=== PATIENT | male | born 1950 | race Caucasian/White ===

== ENCOUNTER → 2021-11-14 09:23 | Outpatient (BNVA) | payer OTHER, SELFPAY | PROVIDERS: Family Provider Emergency Medicine Emergency Medical Services; PCP Emergency Medicine Emergency Medical Services; Visit Provider Nurse Practitioner Family | DX: I10 Essential (primary) hypertension (principal); I25.10 Atherosclerotic heart disease of native coronary artery without angina pectoris; R00.1 Bradycardia, unspecified; Z87.891 Personal history of nicotine dependence | CPT/HCPCS: 93005; 99214 ==

== ENCOUNTER → 2022-05-14 10:44 | Outpatient (BNVA) | payer OTHER, SELFPAY | PROVIDERS: Family Provider Emergency Medicine Emergency Medical Services; PCP Emergency Medicine Emergency Medical Services; Visit Provider Internal Medicine Cardiovascular Disease | DX: R53.83 Other fatigue (principal); I25.118 Atherosclerotic heart disease of native coronary artery with other forms of angina pectoris; I10 Essential (primary) hypertension; E78.2 Mixed hyperlipidemia; Z87.891 Personal history of nicotine dependence | CPT/HCPCS: 99214; Q3014 ==

== ENCOUNTER 2022-05-24 10:43 | Outpatient (CLI) | payer OTHER, SELFPAY ==
--- NOTE | 2022-05-24 11:00 | USCV_ITS ---
Jesu Gonzalez Age: 71 Gender: M : 1950 Exam Date: 05/24/2022 10:53 Ordering Phys: Stephanie Ortega MD ([email or web address]) Technologist: CT [place] [facility] [place]: Hx of cad BP: 146 / 60 HR: 59 Rhythm: Sinus Technical Quality: Adequate MEASUREMENTS (Male / Female) Normal Values 2D ECHO LV Diastolic Diameter PLAX 4.3 cm 4.2 - 5.9 / 3.9 - 5.3 cm LV Systolic Diameter PLAX 3.2 cm IVS Diastolic Thickness 1.2 cm 0.6 - 1.0 / 0.6 - 0.9 cm IVS Systolic Thickness 1.6 cm LVPW Diastolic Thickness 1.2 cm 0.6 - 1.0 / 0.6 - 0.9 cm LVPW Systolic Thickness 1.5 cm LVOT Diameter 2.2 cm LV Ejection Fraction 2D Teich 51.2 % LV Ejection Fraction MOD 2C 73.6 % LV Ejection Fraction 2C AL 72.1 % LA Diameter 4.0 cm IVC Diameter 1.3 cm M-MODE Aortic Annulus Diameter 3.5 cm LA Ao Ratio MM 1.2 MV E Point Septal Separation 0.8 cm DOPPLER AV Peak Velocity 120.0 cm/s LVOT Peak Velocity 95.0 cm/s AV Area Cont Eq vti 3.3 cm squared AV Area Cont Eq pk 2.9 cm squared MV Area PHT 5.0 cm squared Mitral E to A Ratio 0.9 MV E' Velocity 90.0 cm/s TR Peak Velocity 176.7 cm/s TR Peak Gradient 12.5 mmHg TV Peak E Velocity 88.0 cm/s Right Atrial Pressure 3.0 mmHg Pulmonary Artery Systolic Pressu 15.5 mmHg RV Acceleration Time 0.1 s FINDINGS Left Ventricle Normal left ventricular size, systolic function with no regional wall motion abnormalities. Left ventricular ejection fraction is estimated at 55-60 %. Abnormal septal motion consistent with conduction abnormality. Right Ventricle Normal right ventricular size and systolic function. RVSP could not be calculated due to incomplete tricuspid regurgitation velocity profile. Right Atrium Normal right atrial size. Left Atrium Normal left atrial size. Mitral Valve Mildly thickened mitral valve. No mitral valve stenosis. No mitral valve regurgitation. Aortic Valve Aortic valve not well visualized. No aortic valve stenosis. No aortic valve regurgitation. Tricuspid Valve Structurally normal tricuspid valve. Pulmonic Valve Pulmonic valve not well visualized. Pericardium No pericardial effusion. Aorta Normal sized aortic root. IVC Inferior vena cava not visualized. CONCLUSIONS 1. Normal left ventricular size, systolic function with no regional wall motion abnormalities. Left ventricular ejection fraction is estimated at 55-60 %. 2. No prior similar studies to compare. Stephanie Ortega MD (Electronically Signed) Final Date: 01 June 2022 20:34 S
[2022-05-24] MEDS: perflutren protein-a microsphr 0.22 mg/mL SDV 3 mL IV (11:32)
== END 2022-05-24 10:44 | disposition home or self-care (01) ==
LOC: RAD 10:43
PROVIDERS: PCP Emergency Medicine Emergency Medical Services; Visit Provider Internal Medicine Cardiovascular Disease
DX: R06.02 Shortness of breath (principal); I25.10 Atherosclerotic heart disease of native coronary artery without angina pectoris
CPT/HCPCS: C8929; Q9956

== ENCOUNTER 2022-08-13 09:45 | Emergency (ER) | payer OTHER, SELFPAY ==
[2022-08-13 09:52] VITALS: BP 159/72; PULSE 71; RESP 16; TEMP 36.6; O2SAT 94; BMI 27.0
--- NOTE | 2022-08-13 10:01 | ECG_ITS ---
[facility] Test Date: 2022-08-13 Pat Name: Jesu Gonzalez Department: Room: Gender: Male Count Room Clerk: : 1950 Requested By: Madhav Vo Order Number: [id number] Hemanth MD: Angel Blevins M.D. Measurements Intervals [place] Rate: 63 P: 162 OK: 197 QRS: 198 QRSD: 91 T: 171 QT: 386 QTc: 396 Interpretive Statements SINUS RHYTHM LATERAL MYOCARDIAL INFARCTION , OF INDETERMINATE AGE [40+ ms Q WAVE AND/OR ST/T ABNORMALITY IN I/aVL/V5/V6] Compared to ECG 06/12/2018 14:04:01 Myocardial infarct finding now present Sinus bradycardia no longer present First degree AV block no longer present Electronically Signed On 08-13-2022 14:48:58 CDT by Angel Blevins M.D. [id number]
--- NOTE | 2022-08-13 12:25 | XR_ITS ---
WS: [id number] Portable AP upright chest, 08/13/2022 Clinical Data: dyspnea/cough Comparison: None. Findings: No nodules, masses or effusions are seen. The heart is normal. The pulmonary vascularity is not increased. No pneumonia or pneumothorax is seen. The diaphragms are flattened. XR/XR chest 1V portable [id number] Impression: Hyperinflation.
[2022-08-13 12:36] LABS: Basophils # 0.1 10^3/uL (0.0-0.1); Basophils % 0.6 %; Eosinophils # 0.7 10^3/uL (0.0-0.8); Eosinophils % 5.7 %; Hemoglobin 14.9 g/dL (11.7-16.6); Lymphocytes % 17.4 %; Mean Corpuscular HGB Conc 32.4 g/dL (30.0-36.0); Mean Corpuscular Hemoglobin 30.7 pg (28.0-34.0); Mean Corpuscular Volume 94.7 fl (80-94); Mean Platelet Volume 10.8 fL (7.4-10.4); Monocytes % 8.2 %; Neutrophils # 7.84 10^3/uL (1.8-7.7); Neutrophils % 67.8 %; Nucleated Red Blood Cells % 0 %; Platelet Count 228 10^3/cmm (130-400); Red Blood Count 4.86 10^6/uL (4.1-5.3); Red Cell Distribution Width 13.1 % (12.1-15.1); White Blood Count 11.6 10^3/uL (4.0-10.0)
[2022-08-13 12:55] LABS: Alanine Aminotransferase 18 U/L (0-41); Albumin Level 4.3 g/dL (3.5-5.2); Alkaline Phosphatase 87 U/L (40-130); Anion Gap 14.1 (5-19); Aspartate Amino Transferase 14 U/L (0-40); Blood Urea Nitrogen 12 mg/dL (8-23); Calcium 9.4 mg/dL (8.5-10.5); Carbon Dioxide 27 mmol/L (22-29); Chloride 104 mmol/L (98-107); Creatinine Clr Calc Pharmacy 89.1231; Globulin 2.6 g/dL (1.3-4.6); Glomerular Filtration Rate 95.6 mL/min (90-130); Glucose 108 mg/dL (65-115); Osmolality Calculated 292 mOsm/kg (285-295); Potassium 4.1 mmol/L (3.5-5.1); Sodium 141 mmol/L (136-145); Total Bilirubin 0.5 mg/dL (0.15-1.2); Total Protein 6.9 g/dL (6.6-8.7)
[2022-08-13 12:56] LABS: Troponin(5th) Baseline 11 ng/L (0-15)
--- NOTE | 2022-08-13 12:57 | ED_ITS ---
HPI - SOB/Dyspnea General: Chief Complaint: Shortness of Breath/Dyspnea Stated Complaint: SOB [facility] sent Time Seen by Provider: 08/13/22 12:24 Source: patient Mode of arrival: ambulatory History of Present Illness: HPI Narrative: 9-year-old male who presents to the emergency room with complaints of shortness of breath. He has a history of COPD he is only using albuterol and has been using it about every 2 hours even through the night he had to use it very regularly. He has noted that its less and less effective over time he denies any fever. Has minimally productive cough. No diarrhea no myalgias no fever MD elicited complaint: shortness of breath and cough Pertinent past history: COPD and congestive heart failure Onset (ago): day(s) Timing: constant Severity: moderate Exacerbating factors: exertion and coughing Relieving factors: rest and bronchodilators (Relatively short relief) Known history of: COPD Associated symptoms: Deny abdominal pain, chest congestion, chest pain, cough, diaphoresis, dizziness, extremity pain, fever(s), hemoptysis, lightheadedness, myalgias, nausea, orthopnea, palpitations, paresthesias, polydipsia, polyuria, rash, sense of impending doom, syncope or vomiting Treatment prior to arrival: none Review of Systems Const: Denies: fever(s), chills, fatigue, malaise or diaphoresis ENMT: Denies: throat pain, ear or mastoid pain, nasal discharge or nasal congestion Card: Denies: chest pain, palpitations, lightheadedness, syncope or orthopnea Resp: Reports: dyspnea, productive cough and wheezing; Denies: hemoptysis or chest congestion GI: Denies: abdominal pain, nausea or vomiting : Denies: flank pain, dysuria, urinary frequency or urinary urgency Musc: Denies: neck pain, back pain or extremity pain Skin/Breast: Denies: rash or pruritus Neuro: Denies: dizziness Endo: Denies: polyuria or polydipsia PFSH ED PFSH: Medical History CAD (coronary artery disease) Chronic stable angina COPD (chronic obstructive pulmonary disease) Coronary artery disease Diabetes mellitus HTN (hypertension) Hyperlipidemia Osteoarthritis Surgical History History of cholecystectomy History of coronary artery stent placement x2 Social History Smoking and tobacco status: former smoker Alcohol intake: never Physical Exam Const: COMMON NORMALS: no acute distress GENERAL APPEARANCE: cooperative and comfortable ORIENTATION/CONSCIOUSNESS: Yes awake, Yes oriented to person, Yes oriented to place and Yes oriented to time HENMT: COMMON NORMALS: normocephalic, atraumatic and hearing grossly normal bilaterally HEAD & SCALP: normocephalic and atraumatic Resp: COMMON NORMALS: normal respiratory effort, No retractions and No use of accessory muscles AUSCULTATION: rales and wheezes Cardio: COMMON NORMALS: regular rate, regular rhythm and No murmurs present (Cardio) RATE: regular rate RHYTHM: regular rhythm GI: COMMON NORMALS: Soft to palpation and No hepatosplenomegaly present AUSCULTATION: Yes normoactive bowel sounds PALPATION: Yes Soft to palpation, No Tenderness to palpation present (GI), No Guarding due to palpation present (GI) and Yes No hepatosplenomegaly present Extremity: COMMON NORMALS: normal to inspection, capillary refill normal, no clubbing, cyanosis or edema, no calf tenderness and no pedal edema Neuro: SENSORIUM/ORIENTATION: Yes oriented to person, Yes oriented to place and Yes oriented to time Skin: COMMON NORMALS: no rashes or lesions noted GENERAL SKIN EXAM: no rashes or lesions noted Course Vital Signs: Vital signs: Vital Signs Temperature 97.8 F 08/13/22 09:52 Pulse Rate 58 L 08/13/22 13:05 Respiratory Rate 18 08/13/22 13:05 Blood Pressure 125/69 08/13/22 13:04 Pulse Oximetry 90 08/13/22 13:05 Oxygen Delivery Me thod Room Air 08/13/22 13:05 MDM - SOB/Dyspnea Medical Decision Making Improved after steroids and DuoNeb. He has less wheezing but still has a fair amount. His sats are normal. We will discharge him home unfortunately his only been using albuterol and using it often enough that he is developing some tolerance. We will start him on Spiriva 2 puffs once daily Symbicort 2 puffs twice daily and also give him DuoNebs to use in his nebulizer. Steroid taper and doxycycline. Recommend that he follow-up with his primary care doctor within the week return to the emergency room if has further problems. Medical Records I reviewed the patient's medical records. Lab Data I reviewed the patient's lab results. 08/13/22 12:25 08/13/22 12:25 Labs/Radiology: Radiology Impressions Chest X-Ray 08/13/22 12:25 Impression: Hyperinflation. Laboratory Results WBC 11.6 10^3/uL (4.0-10.0) H 08/13/22 12:25 RBC 4.86 10^6/uL (4.1-5.3) 08/13/22 12:25 Hgb 14.9 g/dL (11.7-16.6) 08/13/22 12:25 Hct 46.0 % (42.0-52.0) 08/13/22 12:25 MCV 94.7 fl (80-94) H 08/13/22 12:25 MCH 30.7 pg (28.0-34.0) 08/13/22 12:25 MCHC 32.4 g/dL (30.0-36.0) 08/13/22 12:25 RDW 13.1 % (12.1-15.1) 08/13/22 12:25 Plt Count 228 10^3/cmm (130-400) 08/13/22 12:25 MPV 10.8 fL (7.4-10.4) H 08/13/22 12:25 Neut % (Auto) 67.8 % 08/13/22 12:25 Lymph % (Auto) 17.4 % 08/13/22 12:25 [place] % (Auto) 8.2 % 08/13/22 12:25 Eos % (Auto) 5.7 % 08/13/22 12:25 Baso % (Auto) 0.6 % 08/13/22 12:25 Neut # (Auto) 7.84 10^3/uL (1.8-7.7) H 08/13/22 12:25 Lymph # (Auto) 2.0 10^3/uL (0.8-4.8) 08/13/22 12:25 [place] # (Auto) 1.0 10^3/uL (0.2-0.9) H 08/13/22 12:25 Eos # (Auto) 0.7 10^3/uL (0.0-0.8) 08/13/22 12:25 Baso # (Auto) 0.1 10^3/uL (0.0-0.1) 08/13/22 12:25 Nucleated RBC % (auto) 0 % 08/13/22 12:25 Nucleated RBCs # 0.0 /100WBC 08/13/22 12:25 Specimen Type Arterial 08/13/22 12:47 Sample Site Radial, left 08/13/22 12:47 ABG pH 7.38 (7.35-7.45) 08/13/22 12:47 ABG pCO2 43.7 mmHg (35-45) 08/13/22 12:47 ABG pO2 66.5 mmHg (80.0-100.0) L 08/13/22 12:47 ABG HCO3 25.6 mmol/L (22-26) 08/13/22 12:47 ABG O2 Saturation 91.7 08/13/22 12:47 ABG Base Excess 0.1 mmol/L (-2.0-2.0) 08/13/22 12:47 Dean Test Pos 08/13/22 12:47 A-a O2 Gradient 3.7 mmHg (5-10) L 08/13/22 12:47 Hematocrit 46.6 % (42-52) 08/13/22 12:47 Hgb O2 Saturation 90.7 % (95-100) L 08/13/22 12:47 Carboxyhemoglobin 0.3 %THgb (0.4-20.1) L 08/13/22 12:47 Methemoglobin 0.8 % (0.4-1.5) 08/13/22 12:47 Total Hemoglobin 15.2 g/dL (14-18) 08/13/22 12:47 Sodium 143.0 mmol/L (131-143) 08/13/22 12:47 Potassium 3.9 mmol/L (3.5-5.0) 08/13/22 12:47 Glucose 109.0 mg/dL (70-115) 08/13/22 12:47 Ionized Calcium 1.3 mmol/L (1.1-1.4) 08/13/22 12:47 O2 Delivery Device Room air 08/13/22 12:47 Japanese Tutor ID [email or web address] 08/13/22 12:47 Sodium 141 mmol/L (136-145) 08/13/22 12:25 Potassium 4.1 mmol/L (3.5-5.1) 08/13/22 12:25 Chloride 104 mmol/L (98-107) 08/13/22 12:25 Carbon Dioxide 27 mmol/L (22-29) 08/13/22 12:25 Anion Gap 14.1 (5-19) 08/13/22 12:25 BUN 12 mg/dL (8-23) 08/13/22 12:25 Creatinine 0.8 mg/dL (0.7-1.2) 08/13/22 12:25 GFR Calculation 95.6 mL/min (90-130) 08/13/22 12:25 Glucose 108 mg/dL (65-115) 08/13/22 12:25 Calculated Osmolality 292 mOsm/kg (285-295) 08/13/22 12:25 Calcium 9.4 mg/dL (8.5-10.5) 08/13/22 12:25 Total Bilirubin 0.5 mg/dL (0.15-1.2) 08/13/22 12:25 AST 14 U/L (0-40) 08/13/22 12:25 ALT 18 U/L (0-41) 08/13/22 12:25 Alkaline Phosphatase 87 U/L (40-130) 08/13/22 12:25 Troponin T Baseline 11 ng/L (0-15) 08/13/22 12:25 Total Protein 6.9 g/dL (6.6-8.7) 08/13/22 12:25 Albumin 4.3 g/dL (3.5-5.2) 08/13/22 12:25 Globulin 2.6 g/dL (1.3-4.6) 08/13/22 12:25 Discharge Plan Discharge Patient Disposition: Home Clinical Impression: Acute exacerbation of chronic obstructive airways disease Condition: Stable Prescriptions: New doxycycline hyclate 100 mg capsule 100 mg PO BID 10 Days Qty: 20 0RF promethazine 25 mg tablet 25 mg PO Q6H PRN (Reason: nausea and vomiting) Qty: 20 0RF Spiriva Respimat 1.25 mcg/actuation mist 2 inh inhalation DAILY Qty: 4 0RF Symbicort 80-4.5 mcg/actuation HFA aerosol inhaler 2 inh inhalation BID Qty: 10.2 0RF ipratropium-albuterol 0.5 mg-3 mg(2.5 mg base)/3 mL solution for nebulization 3 ml inhalation Q6H PRN (Reason: shortness of breath or wheezing) Qty: 180 0RF No Action albuterol sulfate 90 mcg/actuation HFA aerosol inhaler 2 puff inhalation Q6H PRN albuterol sulfate 2.5 mg /3 mL (0.083 %) solution for nebulization 2.5 mg inhalation Q4H PRN aspirin 81 mg tablet,delayed release (DR/EC) 81 mg PO DAILY atorvastatin 80 mg tablet 40 mg PO DAILY cetirizine [All Day Allergy (cetirizine)] 10 mg tablet 10 mg PO DAILY PRN diltiazem HCl 300 mg capsule,extended release 24hr 300 mg PO DAILY empagliflozin 25 mg tablet 25 mg PO DAILY glipizide 10 mg tablet 10 mg PO DAILY isosorbide mononitrate 60 mg tablet extended release 24 hr 90 mg PO TID losartan 50 mg tablet 25 mg PO DAILY metformin 1,000 mg tablet 500 mg PO BID metoprolol tartrate 50 mg tablet 25 mg PO BID nitroglycerin 0.4 mg tablet, sublingual 0.4 mg sublingual Q5M PRN Rx Instructions: do not exceed 3 doses per episode omeprazole 20 mg tablet,delayed release (DR/EC) 20 mg PO DAILY fluticasone propionate [Allergy Relief (fluticasone)] 50 mcg/actuation spray,suspension 1 spray intranasal DAILY PRN Rx Instructions: administer into each nostril ranolazine 500 mg tablet extended release 12 hr 500 mg PO BID Qty: 60 6RF Discharge Orders: Discharge ED (Routine); Ordered 08/13/22 Ordered By: Madhav Willson Referrals: Hima Rockwell DO [Primary Care Provider] - Discharge Diet: Usual diet Discharge Activity: Increase activity as tolerated Patient Instructions: Opioid Safety, Pain Management Activity Restrictions/Additional Instructions: You are seen today for an exacerbation of your COPD. Using only albuterol on a regular basis can lead to decreased response from that particular medication. I would be better if we added Spiriva and Symbicort as maintenance medicines each to be used twice a day. Then use albuterol ipratropium bromide for nebulizers for control of breakthrough symptoms. Additionally you were given doxycycline begin today, and a steroid taper which she should begin tomorrow. Follow-up with your doctor within the next week. Return to the emergency room if further problems. Coding Level of Care Code ED Operating Room Technologist for [employer]ney
[2022-08-13 13:00] LABS: ABG PCO2 43.7 mmHg (35-45); ABG PH Result 7.38 (7.35-7.45); Alveolar-Arterial Oxygen Gradi 3.7 mmHg (5-10); Arterial Blood Gas Hematocrit 46.6 % (42-52); Base Excess ABG 0.1 mmol/L (-2.0-2.0); Blood Gas Allen Test Pos; Blood Gas Sample Site Radial, left; Blood Gas Sample Type Arterial; Carboxyhemoglobin 0.3 %THgb (0.4-20.1); HCO3 ABG 25.6 mmol/L (22-26); HGB O2 Sat 90.7 % (95-100); Ionized Calcium Level - ABG 1.3 mmol/L (1.1-1.4); Methemoglobin 0.8 % (0.4-1.5); Oxygen Device ROOM AIR; Oxygen Saturation ABG 91.7; PO2 ABG 66.5 mmHg (80.0-100.0); Potassium Level - ABG 3.9 mmol/L (3.5-5.0); Total Hemoglobin 15.2 g/dL (14-18)
[2022-08-13 13:04] VITALS: BP 125/69; PULSE 59; RESP 18; O2SAT 95
[2022-08-13] MEDS: ipratropium-albuterol 3 mL Neb INHALATION (13:04)
[2022-08-13 13:05] VITALS: PULSE 58; RESP 18; O2SAT 90
[2022-08-13 13:59] VITALS: BP 118/54; PULSE 60; O2SAT 95
== END 2022-08-13 13:45 | disposition home or self-care (01) ==
PROVIDERS: Emergency Provider Family Medicine; PCP Emergency Medicine Emergency Medical Services
DX: J44.1 Chronic obstructive pulmonary disease with (acute) exacerbation (principal); Z79.82 Long term (current) use of aspirin; Z79.84 Long term (current) use of oral hypoglycemic drugs; I25.10 Atherosclerotic heart disease of native coronary artery without angina pectoris; E11.9 Type 2 diabetes mellitus without complications; I10 Essential (primary) hypertension; E78.5 Hyperlipidemia, unspecified; Z87.891 Personal history of nicotine dependence
CPT/HCPCS: 36600; 71045; 80051; 80053; 82330; 82805; 84484; 85025; 93005; 94640; 96374; 99285; J2930

== ENCOUNTER 2023-02-25 20:00 | Outpatient (CLI) | payer OTHER, SELFPAY | END 2023-02-25 20:01 | disposition home or self-care (01) | LOC: SLEEP 02-26 05:54 | PROVIDERS: Visit Provider Emergency Medicine Emergency Medical Services | DX: G47.33 Obstructive sleep apnea (adult) (pediatric) (principal); G47.36 Sleep related hypoventilation in conditions classified elsewhere; R06.83 Snoring | CPT/HCPCS: 95810 ==

== ENCOUNTER 2023-02-26 06:00 | Outpatient (RCR) | payer OTHER, SELFPAY | END 2023-03-27 23:59 | disposition home or self-care (01) | LOC: TST 06:00 | PROVIDERS: Visit Provider Emergency Medicine Emergency Medical Services | DX: R49.0 Dysphonia (principal) | CPT/HCPCS: 92507; 92523; 92526 ==

== ENCOUNTER 2023-03-28 06:00 | Outpatient (RCR) | payer OTHER, SELFPAY | END 2023-04-27 23:59 | disposition home or self-care (01) | LOC: TST 06:00 | PROVIDERS: PCP Emergency Medicine Emergency Medical Services; Visit Provider Emergency Medicine Emergency Medical Services | DX: R49.0 Dysphonia (principal); R13.19 Other dysphagia | CPT/HCPCS: 92507; 92526 ==

== ENCOUNTER 2023-04-28 06:00 | Outpatient (RCR) | payer OTHER, SELFPAY | END 2023-05-28 23:59 | disposition home or self-care (01) | LOC: TST 06:00 | PROVIDERS: PCP Emergency Medicine Emergency Medical Services; Visit Provider Emergency Medicine Emergency Medical Services | DX: R49.0 Dysphonia (principal); R13.19 Other dysphagia | CPT/HCPCS: 92507 ==

== ENCOUNTER 2023-05-07 10:33 | Outpatient (CLI) | payer OTHER, SELFPAY ==
--- NOTE | 2023-05-07 10:39 | FL_ITS ---
WS: [id number] FL barium swallow modifd [id number] REASON FOR EXAM: Other dysphagia FLUOROSCOPY TIME: 2min [id number] # OF SPOT FILMS: None FINDINGS: Procedure was supervised by the speech therapy department. Patient was examined in the upright sitting lateral projection. The swallowing of multiple consistencies of barium was monitored fluoroscopically and video recorded. A detailed report of the swallowing will be rendered by the speech therapy department. IMPRESSION: Modified barium swallow as above.
== END 2023-05-07 10:34 | disposition home or self-care (01) ==
LOC: RAD 10:34
PROVIDERS: PCP Emergency Medicine Emergency Medical Services; Visit Provider Emergency Medicine Emergency Medical Services
DX: R13.10 Dysphagia, unspecified (principal)
CPT/HCPCS: 74230; 92611

== ENCOUNTER 2023-05-27 20:00 | Outpatient (CLI) | payer OTHER, SELFPAY | END 2023-05-27 20:01 | disposition home or self-care (01) | LOC: SLEEP 05-28 06:07 | PROVIDERS: PCP Emergency Medicine Emergency Medical Services; Visit Provider Emergency Medicine Emergency Medical Services | DX: G47.33 Obstructive sleep apnea (adult) (pediatric) (principal) | CPT/HCPCS: 95811 ==

== ENCOUNTER 2023-05-29 06:00 | Outpatient (RCR) | payer OTHER, SELFPAY | END 2023-06-26 23:59 | disposition home or self-care (01) | LOC: TST 06:00 | PROVIDERS: PCP Emergency Medicine Emergency Medical Services; Visit Provider Emergency Medicine Emergency Medical Services | DX: R49.0 Dysphonia (principal) | CPT/HCPCS: 92526 ==

== ENCOUNTER → 2023-07-31 10:32 | Outpatient (BNVA) | payer OTHER, SELFPAY | PROVIDERS: PCP Emergency Medicine Emergency Medical Services; Visit Provider Internal Medicine Cardiovascular Disease | DX: R07.9 Chest pain, unspecified (principal); I25.110 Atherosclerotic heart disease of native coronary artery with unstable angina pectoris; I48.91 Unspecified atrial fibrillation; E78.2 Mixed hyperlipidemia; I10 Essential (primary) hypertension; E11.9 Type 2 diabetes mellitus without complications; J44.9 Chronic obstructive pulmonary disease, unspecified; Z87.891 Personal history of nicotine dependence | CPT/HCPCS: 93005 ==

== ENCOUNTER 2023-08-21 06:21 | Outpatient (CLI) | payer OTHER, SELFPAY ==
[2023-08-21] VITALS (23 sets, daily range): BP systolic 79–162; BP diastolic 41–81; PULSE 42–62; RESP 14–19; TEMP 36.6; O2SAT 92–97; BMI 27.3
[2023-08-21] MEDS: diphenhydrAMINE 50 mg Capsule PO (06:30)
[2023-08-21 06:52] LABS: Basophils # 0.1 10^3/uL (0.0-0.1); Basophils % 0.6 %; Eosinophils # 0.3 10^3/uL (0.0-0.8); Eosinophils % 2.8 %; Hematocrit 45.7 % (37-53); Lymphocytes # 2.1 10^3/uL (0.8-4.8); Lymphocytes % 19.5 %; Mean Corpuscular HGB Conc 32.2 g/dL (30-55); Mean Corpuscular Hemoglobin 30.6 pg (27-33); Mean Corpuscular Volume 95.2 fl (82-101); Mean Platelet Volume 10.5 fL (7.4-10.4); Monocytes # 1.1 10^3/uL (0.2-0.9); Monocytes % 10.1 %; Neutrophils # 7.14 10^3/uL (1.8-7.7); Neutrophils % 66.4 %; Nucleated Red Blood Cells % 0 %; Platelet Count 258 10^3/cmm (157-399); Red Cell Distribution Width 13.3 % (12.1-15.1); White Blood Count 10.73 10^3/uL (3.29-11.43)
--- NOTE | 2023-08-21 07:00 | XACV_ITS ---
Exam Room: 2 Ht: 173 cm Wt: 82 kg BSA: 2.00 m2 Gender: Male : 1950 Any Known Allergies: Other Exam Priority: Routine Procedure(s): Procedure Description: Diagnostic procedure Procedure Description: Left Heart Catheterization Procedure Description: Left ventriculography Procedure Description: Coronary Angiography Mauro SPARKS; Diagnostic Cath Status: Elective Diagnostic Findings * Left main is a medium caliber vessel with no significant stenotic lesions. * Left anterior descending artery is a medium caliber vessel which appears to wrap around the LV apex minimally. It gives off a high diagonal branch of equal caliber patient was found to have mild diffuse intimal irregularities. The artery also appears to give left to left collaterals circumflex artery and left to right collaterals to the PDA and PLV branches. * The circumflex artery is a small to medium caliber vessel which gives off a high obtuse marginal, intermedius artery with an ostial around 60% stenosis. The mid circumflex artery appears to be totally occluded after giving of an atrial branch. The mid circumflex has a long stented segment which is totally occluded. * The right coronary artery is a medium caliber dominant vessel which appears to be totally occluded after the first RV branch. The proximal right coronary artery was found to have mild to moderate diffuse disease.. Bridging collaterals were noted through the RV branch. Conclusions 1. 73-year-old white male with a history of atherosclerotic heart disease, high blood pressure, dyslipidemia, type 2 diabetes and COPD, presented with increasing shortness of breath and chest pains requiring more frequent use of the sublingual nitro. He also was found to have a new EKG change of left bundle branch block. In view of his symptoms and the abnormal EKG, in order to further evaluate his coronary status, a repeat cardiac catheterization was recommended. Patient underwent left heart catheterization with left and right coronary angiogram and LV angiogram today. The findings are as follows.. 2. 1. No significant lesions in the left main. Mild disease in the left hand descending artery.3. Total occlusion of the mid circumflex artery with a fairly good left to left collaterals. The intermedius artery was found to have around 60% ostial narrowing.3. The right coronary artery is totally occluded after the first RV branch. Bridging collaterals as well as [id number] collaterals were noted. Normal LV size ejection fraction of 55%. No significant wall motion normalities or any filling defects. 3. In view of the angiographic findings, 4. it was thought to be appropriate to continue the medical treatment and optimize it. Diagnostic RX Recommendation: medical therapy and/or counseling LV EDP: 25 mmHg Ventriculography Ejection Fraction: 55.0 % Left Ventriculography Findings: * No angiogram was performed in the CERDA view. The LV cavity appears to be normal size. There is no filling defects or any significant mitral valve regurgitation The overall ejection fraction was around 55%. Pressures Phase:Rest AO : 107 / 60 ( 81 ) @ 8:30:00 AM 109 / 62 ( 82 ) @ 8:31:00 AM 137 / 58 ( 87 ) @ 8:43:00 AM 131 / 56 ( 88 ) @ 8:43:00 AM LV : 139 / 10 / 25 @ 8:42:00 AM 138 / 14 / 30 @ 8:43:00 AM 139 / 14 / 27 @ 8:43:00 AM Valves Phase:DefaultPhase AV : 0.0 @ 7:49:15 AM 0.0 @ 7:49:15 AM AV Mean Gradient: 0.0 @ 7:49:15 AM 0.0 @ 7:49:15 AM Clinical Evaluation EBL: 5mL-10mL Procedural Details Pre-Procedure Time Out. Identified patient by full name and date of as verbalized by the patient/guarantor. Does the consent match the physician's order: Yes. Accurate & Complete Informed Consent: Yes. Inpatient/Outpatient History & Physical on Chart: Yes. If H&P is completed, is and addenduem needed: No; If yes, is the addendum complete: N/A. Visualize and Verify Site with Patient/Guarantor: N/A. Relevant Radiology Images available: Yes. Pre-op teaching completed and patient verbalized understanding. The risks, benefits, and alternatives of sedation and/or procedure were discussed by physician. The patient agrees to continue. Procedure started. Physician arrived. [facility] Clinical Fraility Score: 3: Managing Well. Bin Cleaner Indications: Worsening Angina. Chest Pain Symptom Assessment: Typical Angina Symptoms. Correct patient, site and procedure confirmed by cath team. Current diagnosis: Chest Pain. PERRLA. Strong, equal hand peripheral edp equipment operator bilaterally. Lungs clear x 5 lobes. IV Site on Arrival: 20 gauge in the right anticubital. IV Fluids: 0.9% NaCl at KVO. 0 mL infused prior to laborer pole crew. Pre Procedural Pulses: bilateral dorsalis pedis was 3+. Pre Procedural Pulses: bilateral posterior tibial was 3+. Pre Procedural Pulses: bilateral radial was 3+. Oxygen started at 2liters/min via nasal canula. right groin was prepped with chloroprep then draped in the usual sterile fashion. right radial was prepped with chloroprep then draped in the usual sterile fashion. Baseline sample Acquired. HR: 51 BPM. Physician scrubbed in. Immediate Pre-Procedure Time Out. Correct Patient: Yes; Correct Procedure: Yes; Correct Site: Yes; Correct Patient Position: Yes; Correct Supplies: Yes; Dried Flammable Prep: Yes; Blood Products Available: N/A;. Lidocaine 1% infiltrated to the right radial. Arterial access obtained. A 5 zimbabwean Lázaro catheter in over wire. Multiple views taken of left coronary artery. Catheter removed over the exchange wire. A 5 zimbabwean JR4 catheter in over wire. Multiple views taken of right coronary artery. Catheter removed over the exchange wire. A 5 zimbabwean Angled Pig catheter in over wire. EDP Sample taken: LV 139/10,25; HR: 44 BPM; SpO2: 98%. LV gram performed in CERDA @ 10 mL/second for a total of 30 mL. EDP Sample taken: LV 138/14,30; HR: 61 BPM; SpO2: 98%. Pullback taken: LV 139/14,27; AO 137/58(87); Mean: 0mmHg, Peak to Peak: 0mmHg, SEP: 14sec/min; HR: 66 BPM; SpO2: 98%. Catheter removed over the exchange wire. Physician scrubbed out. A TR Band was successful obtaining hemostatsis at the Right Radial artery insertion site. Post Procedure: Pulses reassessed and unchanged. PERRLA. Strong, equal hand peripheral edp equipment operator bilaterally. No VTE prophylaxis required. Medication's Wasted: Lidocaine 1% = 15 mL. Medication's Wasted: Nitro = 49.8 mg. Medication's Wasted: Other = Fentanyl 50mcg Versed 1 mg. Medication's Wasted: Heparin = 1000 units. Total IV fluids: 35 mL. Complications: None. Estimated blood loss: 5mL-10mL. Responsiveness - Normal response to verbal stimuli; alert and oriented, PERRLA. Airway - Unaffected, no intervention required; spontaneous ventilation. Circulation: W/N/L, pulses unchanged. Nausea/Vomiting: No. Procedure completed. Patient transferred by wheelchair to CPRU. Vital chart was stopped. Access Site Site: Right Radial artery Sheath Size: 6 Fr Hemostasis Method: TR Band Hemostasis Success: Successful Procedure Medications Start: 7:15 AM Stop: 7:15 AM Medication: Versed Amount: 1 mg Route: I.V. Start: 7:20 AM Stop: 7:20 AM Medication: Fentanyl Amount: 25 mcg Route: I.V. Start: 7:24 AM Stop: 7:24 AM Medication: Fentanyl Amount: 25 mcg Route: I.V. Start: 7:25 AM Stop: 7:25 AM Medication: Nitrogylcerin Amount: 200 mcg Route: I.A. Start: 7:25 AM Stop: 7:25 AM Medication: Verapamil Amount: 5 mg Route: I.A. Start: 7:27 AM Stop: 7: AM Medication: 0.9% Saline Amount: 250 ml Route: I.V. bolus Start: 7: AM Stop: 7: AM Medication: Heparin Amount: 5000 units Route: I.V. I, the attending physician, have reviewed and verified all procedure medications. Yes, all medications given per verbal order History/Risk Factors Hypertension: Yes Dyslipidemia: Yes Peripheral Arterial Disease (PAD): No Myocardial Infarction ([place]): No Obesity: No Renal Disease: No Tobacco Use: Former Prior Interventions PCI: Yes CABG: No Valve Surgery: No Report Signatures Finalized by Dr Betty Wade MD [facility] on 08/23/2023 12:14 AM
[2023-08-21 07:03] LABS: Blood Urea Nitrogen 19 mg/dL (8-23); Calcium 9.4 mg/dL (8.5-10.5); Carbon Dioxide 28 mmol/L (22-29); Chloride 103 mmol/L (98-107); Glucose 159 mg/dL (65-115); Osmolality Calculated 296 mOsm/kg (285-295); Sodium 140 mmol/L (136-145)
[2023-08-21 07:06] LABS: Anion Gap 13.1 (5-19); Potassium 4.1 mmol/L (3.5-5.1)
--- NOTE | 2023-08-21 07:08 | P.HPUD_ITS ---
Surgery/Procedure H&P Update DATE OF PROCEDURE: August 21, 2023 DATE H&P PERFORMED: 07/31/23 H&P UPDATE INFORMATION: I have reviewed H&P completed within last 30 days, I have examined patient prior to procedure and No changes to prior documentation PREOP DIAGNOSIS: Atherosclerotic heart disease PRIMARY INDICATION FOR PROCEDURE: Worsening angina/previous stent placement/new EKG changes PLANNED PROCEDURE: Operation Date: 08/21/23 07:00 Proposed Procedures p Cardiac Catheterization 06486, R94.31(Left) - Betty Wade MD PATIENT REASSESSED PRIOR TO SEDATION, WITH NO CHANGE NOTED: Yes PHYSICAL EXAM: alert, oriented x 3, clear to auscultation bilaterally and r egular rate & rhythm AIRWAY EVAL/ANESTHESIA PLAN: normal airway, see other exam findings, ASA III, Monitored Anesthesia, Local Anesthesia, Risks, benefits & alternatives of sed ation and/or procedure discussed and Patient agrees to continue as planned
--- NOTE | 2023-08-21 10:20 | PC.NURSE ---
Diaphoretic/Hypotensive Pt sitting up in chair with complaints of nausea. Nurse observed pt to be diaphoretic and pale, HR 42-47. BP cycled and 79/45. Nurse suspects vasovagal response assisted patient back to bed and in trendelenburg position. Pt denies chest pain . Dr. Wade notified via phone and received verbal orders for NS bolus 250ml and EKG. Ekg performed. Blood glucose checked and 196.
--- NOTE | 2023-08-21 10:23 | ECG_ITS ---
[facility] Test Date: 2023-08-21 Pat Name: Jesu Gonzalez Department: Room: Gender: Male Taxonomy Teacher: : 1950 Requested By: Betty Wade Order Number: [id number] Hemanth MD: Jin Santoro M.D. Measurements Intervals [place] Rate: 46 P: 61 [place]: 236 QRS: 24 QRSD: 154 T: 28 QT: 500 QTc: 438 Interpretive Statements SINUS BRADYCARDIA WITH FIRST DEGREE AV BLOCK LEFT BUNDLE BRANCH BLOCK [120+ ms QRS DURATION, 80+ ms Q/S IN V1/V2, 85+ ms R IN I/aVL/V5/V6] Compared to ECG 07/31/2023 10:41:05 No significant changes Electronically Signed On 08-21-2023 15:12:58 CDT by Jin Santoro M.D. [id number]
[2023-08-21 10:27] LABS: Glucose Point of Care 196 mg/dL (70-110)
--- NOTE | 2023-08-21 10:39 | PC.NURSE ---
250ml NS bolus infused at this time from NS bag from cath procedure. Pt reports feeling much better no reports of pain or nausea. BP 112/57. HR average remains 45bpm sinus kaley with first degree AV block. Pt no longer pale or diaphoretic. Dr. Wade notified of EKG and current update on patient at this time.
--- NOTE | 2023-08-21 10:45 | PC.NURSE ---
TR band removal Note Right radial TR band had 15 ml air which was released in increments of 1-2ml of every 5-15 minutes starting at 0855. TR band down and deflated at 1045. Site is asymptomatic , no signs of bleeding or hematoma. Clean large band-aid placed over site.
--- NOTE | 2023-08-21 11:52 | PC.NURSE ---
Patient ambulated around unit and tolerated activity well. Denies dizziness, pain. Reports feeling well. Right radial site is asymptomatic. No signs of bleeding or hematoma noted.
== END 2023-08-21 13:03 | disposition home or self-care (01) ==
PROVIDERS: PCP Emergency Medicine Emergency Medical Services; Visit Provider Internal Medicine Cardiovascular Disease
DX: I25.10 Atherosclerotic heart disease of native coronary artery without angina pectoris (principal); I25.82 Chronic total occlusion of coronary artery; E78.5 Hyperlipidemia, unspecified; E11.9 Type 2 diabetes mellitus without complications; J44.9 Chronic obstructive pulmonary disease, unspecified; I10 Essential (primary) hypertension; Z87.891 Personal history of nicotine dependence; M19.90 Unspecified osteoarthritis, unspecified site; Z95.5 Presence of coronary angioplasty implant and graft
CPT/HCPCS: 36415; 36416; 80048; 82962; 85025; 93005; 93458; 96374; 96375; 99152; 99153; C1769; C1887; C1894; J1644; J2250; J3010; J3490; J7030; J7613; J7626; Q0163; Q9967

== ENCOUNTER → 2023-09-04 13:02 | Outpatient (BNVA) | payer OTHER, SELFPAY | PROVIDERS: PCP Emergency Medicine Emergency Medical Services; Visit Provider Nurse Practitioner Family | DX: I25.10 Atherosclerotic heart disease of native coronary artery without angina pectoris (principal); Z87.891 Personal history of nicotine dependence; I10 Essential (primary) hypertension | CPT/HCPCS: 80048; 99214 ==

== ENCOUNTER → 2023-11-13 12:28 | Outpatient (BNVA) | payer OTHER, SELFPAY | PROVIDERS: PCP Emergency Medicine Emergency Medical Services; Visit Provider Internal Medicine Cardiovascular Disease | DX: E78.2 Mixed hyperlipidemia (principal); I25.10 Atherosclerotic heart disease of native coronary artery without angina pectoris; I10 Essential (primary) hypertension; E11.9 Type 2 diabetes mellitus without complications; J44.9 Chronic obstructive pulmonary disease, unspecified; Z87.891 Personal history of nicotine dependence; Z79.84 Long term (current) use of oral hypoglycemic drugs | CPT/HCPCS: 99214 ==

== ENCOUNTER → 2024-02-20 10:58 | Outpatient (BNVA) | payer OTHER, SELFPAY | PROVIDERS: PCP Emergency Medicine Emergency Medical Services; Referring Provider Nurse Practitioner Family; Visit Provider Nurse Practitioner Family | DX: D48.5 Neoplasm of uncertain behavior of skin (principal); L57.0 Actinic keratosis; D22.5 Melanocytic nevi of trunk; L57.8 Other skin changes due to chronic exposure to nonionizing radiation; Z85.828 Personal history of other malignant neoplasm of skin; Z85.820 Personal history of malignant melanoma of skin | CPT/HCPCS: 11102; 17000; 99203 ==

== ENCOUNTER → 2024-06-03 09:11 | Outpatient (BNVA) | payer OTHER, SELFPAY | PROVIDERS: PCP Emergency Medicine Emergency Medical Services; Visit Provider Nurse Practitioner Family | DX: I25.118 Atherosclerotic heart disease of native coronary artery with other forms of angina pectoris (principal); I10 Essential (primary) hypertension; E78.2 Mixed hyperlipidemia; Z87.891 Personal history of nicotine dependence | CPT/HCPCS: 99214 ==

== ENCOUNTER → 2024-08-20 09:46 | Outpatient (BNVA) | payer OTHER, SELFPAY | PROVIDERS: PCP Emergency Medicine Emergency Medical Services; Visit Provider Nurse Practitioner Family | DX: L29.89 Other pruritus (principal); L57.8 Other skin changes due to chronic exposure to nonionizing radiation; X32.XXXA Exposure to sunlight, initial encounter; L57.0 Actinic keratosis; L81.4 Other melanin hyperpigmentation; Z85.820 Personal history of malignant melanoma of skin; Z08 Encounter for follow-up examination after completed treatment for malignant neoplasm; Z85.828 Personal history of other malignant neoplasm of skin | CPT/HCPCS: 17000; 99214 ==

== ENCOUNTER 2024-09-21 15:57 | Emergency (ER) | payer OTHER, MEDICARE, SELFPAY ==
[2024-09-21] VITALS (9 sets, daily range): BP systolic 116–142; BP diastolic 46–82; PULSE 48–54; RESP 18–19; TEMP 36.6; O2SAT 96–98; BMI 26.6
--- NOTE | 2024-09-21 15:59 | ECG_ITS ---
[facility]24[facility]21 Pat Name: Jesu Gonzalez Department: Room: Gender: Male Tack Maker: : 1950 Requested By: Madhav Vo Order Number: [id number] Reading MD: Measurements Intervals [place] Rate: 50 P: -3 [place]: 214 QRS: 13 QRSD: 165 T: 52 QT: 477 QTc: 437 Interpretive Statements SINUS BRADYCARDIA WITH SINUS ARRHYTHMIA WITH FIRST DEGREE AV BLOCK LEFT BUNDLE BRANCH BLOCK [120+ ms QRS DURATION, 80+ ms Q/S IN V1/V2, 85+ ms R IN I/aVL/V5/V6] No previous ECG available for comparison [email or web address] [id number]
--- NOTE | 2024-09-21 15:59 | XRR_ITS ---
PROCEDURE INFORMATION: Exam: XR Chest Exam date and time: 09/21/2024 4:03 PM Age: 74 years old Clinical indication: Pain; Angina pectoris; HX of melanoma; Additional info: Chest pain TECHNIQUE: Imaging protocol: Radiologic exam of the chest. Views: 1 view. COMPARISON: CR XR chest 1V portable [id number] 08/13/2022 12:29 PM FINDINGS: Lungs: Unremarkable. No consolidation or mass. Pleural spaces: Unremarkable. No pleural effusion. No pneumothorax. Heart/Mediastinum: Unremarkable. No cardiomegaly. Bones/joints: Unremarkable. XR/XR chest 1V portable [id number] IMPRESSION: No acute findings.
[2024-09-21 16:19] LABS: Basophils % 0.3 %; Eosinophils # 0.1 10^3/uL (0.0-0.8); Eosinophils % 1.3 %; Hematocrit 37.5 % (37-53); Lymphocytes # 1.8 10^3/uL (0.8-4.8); Lymphocytes % 18.8 %; Mean Corpuscular HGB Conc 31.5 g/dL (30-55); Mean Corpuscular Hemoglobin 28.8 pg (27-33); Mean Corpuscular Volume 91.5 fl (82-101); Mean Platelet Volume 10.7 fL (7.4-10.4); Monocytes % 10.5 %; Neutrophils # 6.41 10^3/uL (1.8-7.7); Neutrophils % 68.5 %; Nucleated Red Blood Cells % 0 %; Platelet Count 253 10^3/cmm (157-399); Red Cell Distribution Width 14.4 % (12.1-15.1); White Blood Count 9.36 10^3/uL (3.29-11.43)
[2024-09-21] MEDS: aspirin 81 mg Chew Tablet 324 MG PO (16:19)
--- NOTE | 2024-09-21 16:27 | W.ED.CHESTPA ---
Documented by User: Madhav Willson DO 09/22/24 08:37 HPI - Chest Pain General: Chief Complaint: Chest Pain Stated Complaint: Chest pain, Dizziness Time Seen by Provider: 09/21/24 15:59 History of Present Illness: 74-year-old male presents emergency room complaining of chest discomfort and generally not feeling well. Patient said he goes through 100 sublingual nitro per month. Last night he had some chest discomfort which woke him up from sleep which is not unusual for him. He took some sublingual nitro today he just generally did not feel well he went to the PR and they directed him to the emergency room. He is not having any chest discomfort at this time. Patient denies any worsening orthopnea denies any leg edema. Associated symptoms: Deny abdominal pain, dyspnea or fever(s) Related Data Home Medications ?Medication ?Instructions ?Recorded ?Confirmed albuterol sulfate 2.5 mg/3 mL 2.5 mg inhalation Q4H PRN 11/16/20 06/03/24 (0.083 %) solution for nebulization Shortness Of Breath albuterol sulfate 90 mcg/actuation 2 puff inhalation Q6H PRN 11/16/20 06/03/24 aerosol inhaler Shortness Of Breath aspirin 81 mg tablet,delayed 81 mg PO DAILY 11/16/20 06/03/24 release atorvastatin 80 mg tablet 40 mg PO DAILY 11/16/20 06/03/24 cetirizine 10 mg tablet (All Day 10 mg PO DAILY PRN Allergy Symptoms 11/16/20 06/03/24 Allergy (cetirizine)) diltiazem HCl 300 mg 300 mg PO DAILY 11/16/20 06/03/24 capsule,extended release 24 hr empagliflozin 25 mg tablet 25 mg PO DAILY 11/16/20 06/03/24 glipizide 10 mg tablet 10 mg PO DAILY 11/16/20 06/03/24 isosorbide mononitrate 60 mg 90 mg PO TID 11/16/20 06/03/24 tablet,extended release 24 hr losartan 50 mg tablet 25 mg PO DAILY 11/16/20 06/03/24 metformin 1,000 mg tablet 500 mg PO BID 11/16/20 06/03/24 Held on 08/21/23. Instructions: Resume on 08/24/23. metoprolol tartrate 50 mg tablet 25 mg PO BID 11/16/20 06/03/24 nitroglycerin 0.4 mg sublingual 0.4 mg sublingual Q5M PRN Chest 11/16/20 06/03/24 tablet Pain omeprazole 20 mg tablet,delayed 20 mg PO DAILY 11/16/20 06/03/24 release fluticasone propionate 50 1 spray intranasal DAILY PRN 05/14/22 06/03/24 mcg/actuation nasal Allergy Symptoms spray,suspension (Allergy Relief (fluticasone)) Previous Rx's ?Medication ?Instructions ?Recorded ranolazine 500 mg tablet,extended 500 mg PO BID #60 tabs 05/21/21 release,12 hr budesonide-formoterol HFA 80 2 inh inhalation BID #10.2 grams 08/13/22 mcg-4.5 mcg/actuation aerosol inhaler (Symbicort) ipratropium 0.5 mg-albuterol 3 mg 3 ml inhalation Q6H PRN shortness 08/13/22 (2.5 mg base)/3 mL nebulization of breath or wheezing #180 mL soln promethazine 25 mg tablet 25 mg PO Q6H PRN nausea and 08/13/22 vomiting #20 tabs tiotropium bromide 1.25 2 inh inhalation DAILY #4 grams 08/13/22 mcg/actuation mist for inhalation (Spiriva Respimat) clopidogrel 75 mg tablet (Plavix) 75 mg PO DAILY #90 tabs 11/19/23 Allergies Allergy/AdvReac Type Severity Reaction Status Date / Time Influenza Virus Vaccines Allergy ALGY-Rash Verified 06/03/24 09:26 Review of Systems Const: Denies: fever(s) or chills Card: Reports: chest pain; Denies: edema or swelling of feet/ankles Resp: Denies: dyspnea GI: Denies: abdominal pain : Denies: dysuria, urinary frequency or urinary urgency Musc: Denies: neck pain or back pain Skin/Breast: Denies: rash PFSH ED PFSH: Medical History HTN (hypertension) Osteoarthritis CAD (coronary artery disease) Chronic stable angina Diabetes mellitus Coronary artery disease Hyperlipidemia COPD (chronic obstructive pulmonary disease) Surgical History History of cholecystectomy History of coronary artery stent placement x2 Social History Smoking and tobacco/nicotine status: former use of tobacco/nicotine Alcohol intake: never Substance/Drug Use: never Physical Exam Const: GENERAL APPEARANCE: cooperative ORIENTATION/CONSCIOUSNESS: Yes awake, Yes oriented to person, Yes oriented to place and Yes oriented to time HENMT: COMMON NORMALS: normocephalic, atraumatic and hearing grossly normal bilaterally HEAD & SCALP: normocephalic and atraumatic Resp: COMMON NORMALS: normal respiratory effort, No retractions, No use of accessory muscles and clear to auscultation bilaterally AUSCULTATION: clear to auscultation bilaterally Cardio: COMMON NORMALS: regular rate, regular rhythm and No murmurs present (Cardio) RATE: regular rate RHYTHM: regular rhythm GI: COMMON NORMALS: Soft to palpation and No hepatosplenomegaly present AUSCULTATION: Yes normoactive bowel sounds PALPATION: Yes Soft to palpation, No Tenderness to palpation present (GI), No Guarding due to palpation present (GI) and Yes No hepatosplenomegaly present Extremity: COMMON NORMALS: normal to inspection, capillary refill normal, no clubbing, cyanosis or edema, no calf tenderness and no pedal edema Neuro: SENSORIUM/ORIENTATION: Yes oriented to person, Yes oriented to place and Yes oriented to time Skin: COMMON NORMALS: no rashes or lesions noted GENERAL SKIN EXAM: no rashes or lesions noted Course Vital Signs: Vital signs: Vital Signs Temperature 97.9 F 09/21/24 15:58 Pulse Rate 54 L 09/21/24 20:08 Respiratory Rate 19 H 09/21/24 16:21 Blood Pressure 129/51 09/21/24 20:08 Pulse Oximetry 96 09/21/24 20:08 Oxygen Delivery Me thod Room Air 09/21/24 19:34 MDM - Chest Pain Medical Decision Making Care signed out to Dr. Hurley at change of shift. See final notes for diagnosis and disposition. Patient care was transitioned to pr at shift change. I discussed this case with him. He says he did have a lot of chest pain last night and his blood pressure was quite elevated so he taken an extra diltiazem. He says the main reason he came in to clinic today because he was lightheaded and off balance. He says the chest pain is not anything abnormal and he is supposed to have a CABG but just is putting it off for now. His blood pressure was high as 260 systolic. Today here is 120s and he feels better. We suspect that the extra diltiazem may have dropped his blood pressure to the point where he was lightheaded. The chest pain was nothing different. His EKG and his cardiac markers are unremarkable. His BUN is a little bit up and he says he is been having sweats quite frequently because of his prostate cancer and treatment for that and he says that he will work on oral hydration that he would rather go home and receive fluids here. Assessment and plan: Dizziness Dehydration Chest pain Coronary artery disease - Discharged home - Discussed plan with patient. Answered any questions. - Evaluation and treatment of this problem were appropriate in the emergency setting. Lab Data 09/21/24 16:06 09/21/24 16:06 Radiology Impressions Chest X-Ray 09/21/24 15:59 IMPRESSION: No acute findings. Laboratory Results WBC 9.36 10^3/uL (3.29-11.43) 09/21/24 16:06 RBC 4.10 10^6/uL (3.85-5.65) 09/21/24 16:06 Hgb 11.80 g/dL (11.27-16.99) 09/21/24 16:06 Hct 37.5 % (37-53) 09/21/24 16:06 MCV 91.5 fl (82-101) 09/21/24 16:06 MCH 28.8 pg (27-33) 09/21/24 16:06 MCHC 31.5 g/dL (30-55) 09/21/24 16:06 RDW 14.4 % (12.1-15.1) 09/21/24 16:06 Plt Count 253 10^3/cmm (157-399) 09/21/24 16:06 MPV 10.7 fL (7.4-10.4) H 09/21/24 16:06 Neut % (Auto) 68.5 % 09/21/24 16:06 Lymph % (Auto) 18.8 % 09/21/24 16:06 [place] % (Auto) 10.5 % 09/21/24 16:06 Eos % (Auto) 1.3 % 09/21/24 16:06 Baso % (Auto) 0.3 % 09/21/24 16:06 Neut # (Auto) 6.41 10^3/uL (1.8-7.7) 09/21/24 16:06 Lymph # (Auto) 1.8 10^3/uL (0.8-4.8) 09/21/24 16:06 [place] # (Auto) 1.0 10^3/uL (0.2-0.9) H 09/21/24 16:06 Eos # (Auto) 0.1 10^3/uL (0.0-0.8) 09/21/24 16:06 Baso # (Auto) 0.0 10^3/uL (0.0-0.1) 09/21/24 16:06 Nucleated RBC % (auto) 0 % 09/21/24 16:06 Nucleated RBCs # 0.0 /100WBC 09/21/24 16:06 Sodium 141 mmol/L (136-145) 09/21/24 16:06 Potassium 5.2 mmol/L (3.5-5.1) H 09/21/24 16:06 Chloride 104 mmol/L (98-107) 09/21/24 16:06 Carbon Dioxide 22 mmol/L (22-29) 09/21/24 16:06 Anion Gap 20.2 (5-19) H 09/21/24 16:06 BUN 28 mg/dL (8-23) H 09/21/24 16:06 Creatinine 1.1 mg/dL (0.7-1.2) 09/21/24 16:06 GFR Calculation Not Reportable 09/21/24 16:06 Glucose 172 mg/dL (65-115) H 09/21/24 16:06 Calculated Osmolality 302 mOsm/kg (285-295) H 09/21/24 16:06 Calcium 9.3 mg/dL (8.5-10.5) 09/21/24 16:06 Total Bilirubin 0.2 mg/dL (0.15-1.2) 09/21/24 16:06 AST 15 U/L (0-40) 09/21/24 16:06 ALT 18 U/L (0-41) 09/21/24 16:06 Alkaline Phosphatase 83 U/L (40-130) 09/21/24 16:06 Troponin T Baseline 23 ng/L (0-15) H 09/21/24 16:06 Troponin T 120 Minute 11.80 ng/L (0-15) 09/21/24 18:09 Delta Troponin T -11.20 ABS# (0-10) L 09/21/24 18:09 Total Protein 6.5 g/dL (6.6-8.7) L 09/21/24 16:06 Albumin 4.2 g/dL (3.5-5.2) 09/21/24 16:06 Globulin 2.3 g/dL (1.3-4.6) 09/21/24 16:06 Discharge Plan Discharge Patient Disposition: Home Clinical Impression: Dizziness, Coronary artery disease, Chest pain Condition: Stable Prescriptions: No Action albuterol sulfate 90 mcg/actuation HFA aerosol inhaler 2 puff inhalation Q6H PRN (Reason: Shortness Of Breath) albuterol sulfate 2.5 mg /3 mL (0.083 %) solution for nebulization 2.5 mg inhalation Q4H PRN (Reason: Shortness Of Breath) aspirin 81 mg tablet,delayed release (DR/EC) 81 mg PO DAILY atorvastatin 80 mg tablet 40 mg PO DAILY cetirizine [All Day Allergy (cetirizine)] 10 mg tablet 10 mg PO DAILY PRN (Reason: Allergy Symptoms) diltiazem HCl 300 mg capsule,extended release 24hr 300 mg PO DAILY empagliflozin 25 mg tablet 25 mg PO DAILY glipizide 10 mg tablet 10 mg PO DAILY isosorbide mononitrate 60 mg tablet extended release 24 hr 90 mg PO TID losartan 50 mg tablet 25 mg PO DAILY metformin 1,000 mg tablet 500 mg PO BID metoprolol tartrate 50 mg tablet 25 mg PO BID nitroglycerin 0.4 mg tablet, sublingual 0.4 mg sublingual Q5M PRN (Reason: Chest Pain) Rx Instructions: do not exceed 3 doses per episode omeprazole 20 mg tablet,delayed release (DR/EC) 20 mg PO DAILY fluticasone propionate [Allergy Relief (fluticasone)] 50 mcg/actuation spray,suspension 1 spray intranasal DAILY PRN (Reason: Allergy Symptoms) Rx Instructions: administer into each nostril ranolazine 500 mg tablet extended release 12 hr 500 mg PO BID Qty: 60 6RF clopidogrel [Plavix] 75 mg tablet 75 mg PO DAILY Qty: 90 3RF promethazine 25 mg tablet 25 mg PO Q6H PRN (Reason: nausea and vomiting) Qty: 20 0RF Spiriva Respimat 1.25 mcg/actuation mist 2 inh inhalation DAILY Qty: 4 0RF budesonide-formoterol [Symbicort] 80-4.5 mcg/actuation HFA aerosol inhaler 2 inh inhalation BID Qty: 10.2 0RF ipratropium-albuterol 0.5 mg-3 mg(2.5 mg base)/3 mL solution for nebulization 3 ml inhalation Q6H PRN (Reason: shortness of breath or wheezing) Qty: 180 0RF Discharge Orders: Discharge ED (Routine); Ordered 09/21/24 Ordered By: Kate Hurley Referrals: Jazmyn Vides APRN [Primary Care Provider, Family Practice] Discharge Diet: Usual diet Discharge Activity: Increase activity as tolerated Patient Instructions: Opioid Safety, Pain Management Activity Restrictions/Additional Instructions: Thank you for choosing [facility] for your healthcare needs today. You have been screened and evaluated and felt safe for discharge. Health conditions do change or evolve sometimes and as such it is important that you follow up with your Primary Doctor to be re checked, 3-5 days is a general good time frame for follow up. You are always welcome to return to the ED for re assessment if your symptoms are worsening or you have new concerns Print Language: Polish Coding Level of Care Code ED Group Work Program Director for [facility] Documented by User: Kate Hurley MD 09/21/24 19:38 HPI - Chest Pain General: Chief Complaint: Chest Pain Stated Complaint: Chest pain, Dizziness Time Seen by Provider: 09/21/24 15:59 Related Data Home Medications ?Medication ?Instructions ?Recorded ?Confirmed albuterol sulfate 2.5 mg/3 mL 2.5 mg inhalation Q4H PRN 11/16/20 06/03/24 (0.083 %) solution for nebulization Shortness Of Breath albuterol sulfate 90 mcg/actuation 2 puff inhalation Q6H PRN 11/16/20 06/03/24 aerosol inhaler Shortness Of Breath aspirin 81 mg tablet,delayed 81 mg PO DAILY 11/16/20 06/03/24 release atorvastatin 80 mg tablet 40 mg PO DAILY 11/16/20 06/03/24 cetirizine 10 mg tablet (All Day 10 mg PO DAILY PRN Allergy Symptoms 11/16/20 06/03/24 Allergy (cetirizine)) diltiazem HCl 300 mg 300 mg PO DAILY 11/16/20 06/03/24 capsule,extended release 24 hr empagliflozin 25 mg tablet 25 mg PO DAILY 11/16/20 06/03/24 glipizide 10 mg tablet 10 mg PO DAILY 11/16/20 06/03/24 isosorbide mononitrate 60 mg 90 mg PO TID 11/16/20 06/03/24 tablet,extended release 24 hr losartan 50 mg tablet 25 mg PO DAILY 11/16/20 06/03/24 metformin 1,000 mg tablet 500 mg PO BID 11/16/20 06/03/24 Held on 08/21/23. Instructions: Resume on 08/24/23. metoprolol tartrate 50 mg tablet 25 mg PO BID 11/16/20 06/03/24 nitroglycerin 0.4 mg sublingual 0.4 mg sublingual Q5M PRN Chest 11/16/20 06/03/24 tablet Pain omeprazole 20 mg tablet,delayed 20 mg PO DAILY 11/16/20 06/03/24 release fluticasone propionate 50 1 spray intranasal DAILY PRN 05/14/22 06/03/24 mcg/actuation nasal Allergy Symptoms spray,suspension (Allergy Relief (fluticasone)) Previous Rx's ?Medication ?Instructions ?Recorded ranolazine 500 mg tablet,extended 500 mg PO BID #60 tabs 05/21/21 release,12 hr budesonide-formoterol HFA 80 2 inh inhalation BID #10.2 grams 08/13/22 mcg-4.5 mcg/actuation aerosol inhaler (Symbicort) ipratropium 0.5 mg-albuterol 3 mg 3 ml inhalation Q6H PRN shortness 08/13/22 (2.5 mg base)/3 mL nebulization of breath or wheezing #180 mL soln promethazine 25 mg tablet 25 mg PO Q6H PRN nausea and 08/13/22 vomiting #20 tabs tiotropium bromide 1.25 2 inh inhalation DAILY #4 grams 08/13/22 mcg/actuation mist for inhalation (Spiriva Respimat) clopidogrel 75 mg tablet (Plavix) 75 mg PO DAILY #90 tabs 11/19/23 Allergies Allergy/AdvReac Type Severity Reaction Status Date / Time Influenza Virus Vaccines Allergy ALGY-Rash Verified 06/03/24 09:26 [facility] ED PFS: Medical History HTN (hypertension) Osteoarthritis CAD (coronary artery disease) Chronic stable angina Diabetes mellitus Coronary artery disease Hyperlipidemia COPD (chronic obstructive pulmonary disease) Surgical History History of cholecystectomy History of coronary artery stent placement x2 Social History Smoking and tobacco/nicotine status: former use of tobacco/nicotine Alcohol intake: never Substance/Drug Use: never Course Vital Signs: Vital signs: Vital Signs Temperature 97.9 F 09/21/24 15:58 Pulse Rate 54 L 09/21/24 20:08 Respiratory Rate 19 H 09/21/24 16:21 Blood Pressure 129/51 09/21/24 20:08 Pulse Oximetry 96 09/21/24 20:08 Oxygen Delivery Me thod Room Air 09/21/24 19:34 MDM - Chest Pain Medical Decision Making Patient care was transitioned to pr at shift change. I discussed this case with him. He says he did have a lot of chest pain last night and his blood pressure was quite elevated so he taken an extra diltiazem. He says the main reason he came in to clinic today because he was lightheaded and off balance. He says the chest pain is not anything abnormal and he is supposed to have a CABG but just is putting it off for now. His blood pressure was high as 260 systolic. Today here is 120s and he feels better. We suspect that the extra diltiazem may have dropped his blood pressure to the point where he was lightheaded. The chest pain was nothing different. His EKG and his cardiac markers are unremarkable. His BUN is a little bit up and he says he is been having sweats quite frequently because of his prostate cancer and treatment for that and he says that he will work on oral hydration that he would rather go home and receive fluids here. Assessment and plan: Dizziness Dehydration Chest pain Coronary artery disease - Discharged home - Discussed plan with patient. Answered any questions. - Evaluation and treatment of this problem were appropriate in the emergency setting. Lab Data 09/21/24 16:06 09/21/24 16:06 Radiology Impressions Chest X-Ray 09/21/24 15:59 IMPRESSION: No acute findings. Laboratory Results WBC 9.36 10^3/uL (3.29-11.43) 09/21/24 16:06 RBC 4.10 10^6/uL (3.85-5.65) 09/21/24 16:06 Hgb 11.80 g/dL (11.27-16.99) 09/21/24 16:06 Hct 37.5 % (37-53) 09/21/24 16:06 MCV 91.5 fl (82-101) 09/21/24 16:06 MCH 28.8 pg (27-33) 09/21/24 16:06 MCHC 31.5 g/dL (30-55) 09/21/24 16:06 RDW 14.4 % (12.1-15.1) 09/21/24 16:06 Plt Count 253 10^3/cmm (157-399) 09/21/24 16:06 MPV 10.7 fL (7.4-10.4) H 09/21/24 16:06 Neut % (Auto) 68.5 % 09/21/24 16:06 Lymph % (Auto) 18.8 % 09/21/24 16:06 Bosque % (Auto) 10.5 % 09/21/24 16:06 Eos % (Auto) 1.3 % 09/21/24 16:06 Baso % (Auto) 0.3 % 09/21/24 16:06 Neut # (Auto) 6.41 10^3/uL (1.8-7.7) 09/21/24 16:06 Lymph # (Auto) 1.8 10^3/uL (0.8-4.8) 09/21/24 16:06 [place] # (Auto) 1.0 10^3/uL (0.2-0.9) H 09/21/24 16:06 Eos # (Auto) 0.1 10^3/uL (0.0-0.8) 09/21/24 16:06 Baso # (Auto) 0.0 10^3/uL (0.0-0.1) 09/21/24 16:06 Nucleated RBC % (auto) 0 % 09/21/24 16:06 Nucleated RBCs # 0.0 /100WBC 09/21/24 16:06 Sodium 141 mmol/L (136-145) 09/21/24 16:06 Potassium 5.2 mmol/L (3.5-5.1) H 09/21/24 16:06 Chloride 104 mmol/L (98-107) 09/21/24 16:06 Carbon Dioxide 22 mmol/L (22-29) 09/21/24 16:06 Anion Gap 20.2 (5-19) H 09/21/24 16:06 BUN 28 mg/dL (8-23) H 09/21/24 16:06 Creatinine 1.1 mg/dL (0.7-1.2) 09/21/24 16:06 GFR Calculation Not Reportable 09/21/24 16:06 Glucose 172 mg/dL (65-115) H 09/21/24 16:06 Calculated Osmolality 302 mOsm/kg (285-295) H 09/21/24 16:06 Calcium 9.3 mg/dL (8.5-10.5) 09/21/24 16:06 Total Bilirubin 0.2 mg/dL (0.15-1.2) 09/21/24 16:06 AST 15 U/L (0-40) 09/21/24 16:06 ALT 18 U/L (0-41) 09/21/24 16:06 Alkaline Phosphatase 83 U/L (40-130) 09/21/24 16:06 Troponin T Baseline 23 ng/L (0-15) H 09/21/24 16:06 Troponin T 120 Minute 11.80 ng/L (0-15) 09/21/24 18:09 Delta Troponin T -11.20 ABS# (0-10) L 09/21/24 18:09 Total Protein 6.5 g/dL (6.6-8.7) L 09/21/24 16:06 Albumin 4.2 g/dL (3.5-5.2) 09/21/24 16:06 Globulin 2.3 g/dL (1.3-4.6) 09/21/24 16:06 All radiology interpretation(s) finalized by discharge Discharge Plan Discharge Patient Disposition: Home Clinical Impression: Dizziness, Coronary artery disease, Chest pain Condition: Stable Prescriptions: No Action albuterol sulfate 90 mcg/actuation HFA aerosol inhaler 2 puff inhalation Q6H PRN (Reason: Shortness Of Breath) albuterol sulfate 2.5 mg /3 mL (0.083 %) solution for nebulization 2.5 mg inhalation Q4H PRN (Reason: Shortness Of Breath) aspirin 81 mg tablet,delayed release (DR/EC) 81 mg PO DAILY atorvastatin 80 mg tablet 40 mg PO DAILY cetirizine [All Day Allergy (cetirizine)] 10 mg tablet 10 mg PO DAILY PRN (Reason: Allergy Symptoms) diltiazem HCl 300 mg capsule,extended release 24hr 300 mg PO DAILY empagliflozin 25 mg tablet 25 mg PO DAILY glipizide 10 mg tablet 10 mg PO DAILY isosorbide mononitrate 60 mg tablet extended release 24 hr 90 mg PO TID losartan 50 mg tablet 25 mg PO DAILY metformin 1,000 mg tablet 500 mg PO BID metoprolol tartrate 50 mg tablet 25 mg PO BID nitroglycerin 0.4 mg tablet, sublingual 0.4 mg sublingual Q5M PRN (Reason: Chest Pain) Rx Instructions: do not exceed 3 doses per episode omeprazole 20 mg tablet,delayed release (DR/EC) 20 mg PO DAILY fluticasone propionate [Allergy Relief (fluticasone)] 50 mcg/actuation spray,suspension 1 spray intranasal DAILY PRN (Reason: Allergy Symptoms) Rx Instructions: administer into each nostril ranolazine 500 mg tablet extended release 12 hr 500 mg PO BID Qty: 60 6RF clopidogrel [Plavix] 75 mg tablet 75 mg PO DAILY Qty: 90 3RF promethazine 25 mg tablet 25 mg PO Q6H PRN (Reason: nausea and vomiting) Qty: 20 0RF Spiriva Respimat 1.25 mcg/actuation mist 2 inh inhalation DAILY Qty: 4 0RF budesonide-formoterol [Symbicort] 80-4.5 mcg/actuation HFA aerosol inhaler 2 inh inhalation BID Qty: 10.2 0RF ipratropium-albuterol 0.5 mg-3 mg(2.5 mg base)/3 mL solution for nebulization 3 ml inhalation Q6H PRN (Reason: shortness of breath or wheezing) Qty: 180 0RF Discharge Orders: Discharge ED (Routine); Ordered 09/21/24 Ordered By: Kate Hurley Referrals: Jazymn Vides APRN [Primary Care Provider, Family Practice] Discharge Diet: Usual diet Discharge Activity: Increase activity as tolerated Patient Instructions: Opioid Safety, Pain Management Activity Restrictions/Additional Instructions: Thank you for choosing [facility] for your healthcare needs today. You have been screened and evaluated and felt safe for discharge. Health conditions do change or evolve sometimes and as such it is important that you follow up with your Primary Doctor to be re checked, 3-5 days is a general good time frame for follow up. You are always welcome to return to the ED for re assessment if your symptoms are worsening or you have new concerns Print Language: Polish Coding Level of Care Code ED Group Work Program Director for [employer]
[2024-09-21 16:44] LABS: Troponin(5th) Baseline 23 ng/L (0-15)
[2024-09-21 16:47] LABS: Alanine Aminotransferase 18 U/L (0-41); Albumin Level 4.2 g/dL (3.5-5.2); Alkaline Phosphatase 83 U/L (40-130); Anion Gap 20.2 (5-19); Aspartate Amino Transferase 15 U/L (0-40); Blood Urea Nitrogen 28 mg/dL (8-23); Calcium 9.3 mg/dL (8.5-10.5); Carbon Dioxide 22 mmol/L (22-29); Chloride 104 mmol/L (98-107); Creatinine Clr Calc Pharmacy 62.4978; Globulin 2.3 g/dL (1.3-4.6); Glucose 172 mg/dL (65-115); Osmolality Calculated 302 mOsm/kg (285-295); Potassium 5.2 mmol/L (3.5-5.1); Sodium 141 mmol/L (136-145); Total Bilirubin 0.2 mg/dL (0.15-1.2); Total Protein 6.5 g/dL (6.6-8.7)
--- NOTE | 2024-09-21 17:59 | ECG_ITS ---
[facility] Test Date: 2024-09-21 Pat Name: Jesu Gonzalez Department: Room: Gender: Male [employer]: : [id number] Requested By: Madhav Vo Order Number: [id number] Reading MD: Measurements Intervals [place] Rate: 50 P: 69 AK: 224 QRS: 22 QRSD: 159 T: 62 QT: 474 QTc: 433 Interpretive Statements SINUS BRADYCARDIA WITH FIRST DEGREE AV BLOCK LEFT BUNDLE BRANCH BLOCK [120+ ms QRS DURATION, 80+ ms Q/S IN V1/V2, 85+ ms R IN I/aVL/V5/V6] [id number] [id number]
--- NOTE | 2024-09-21 19:34 | PC.NURSE ---
pt ambulated in hallway without any assistance, pt denies any dizziness, denies, pain, states he feels better than before.
== END 2024-09-21 20:09 | disposition home or self-care (01) ==
PROVIDERS: Family Medicine; Emergency Provider Emergency Medicine; PCP Nurse Practitioner Family
DX: R42 Dizziness and giddiness (principal); R07.9 Chest pain, unspecified; I10 Essential (primary) hypertension; I25.10 Atherosclerotic heart disease of native coronary artery without angina pectoris; E86.0 Dehydration; E78.5 Hyperlipidemia, unspecified; C61 Malignant neoplasm of prostate; E11.9 Type 2 diabetes mellitus without complications; Z95.5 Presence of coronary angioplasty implant and graft; Z87.891 Personal history of nicotine dependence
CPT/HCPCS: 36415; 71045; 80053; 84484; 85025; 93005; 99285; J9999

== ENCOUNTER → 2024-11-09 10:13 | Outpatient (BNVA) | payer OTHER, SELFPAY | PROVIDERS: PCP Nurse Practitioner Family; Visit Provider Internal Medicine Cardiovascular Disease | DX: I25.118 Atherosclerotic heart disease of native coronary artery with other forms of angina pectoris (principal); E78.5 Hyperlipidemia, unspecified; I10 Essential (primary) hypertension; E11.9 Type 2 diabetes mellitus without complications; Z79.84 Long term (current) use of oral hypoglycemic drugs; J44.9 Chronic obstructive pulmonary disease, unspecified; Z79.02 Long term (current) use of antithrombotics/antiplatelets; Z79.82 Long term (current) use of aspirin; Z95.5 Presence of coronary angioplasty implant and graft; Z87.891 Personal history of nicotine dependence; R06.02 Shortness of breath; I31.9 Disease of pericardium, unspecified; R07.9 Chest pain, unspecified | CPT/HCPCS: 36415; 80048; 83880; 84484; 93005; 99214 ==